=== PATIENT | female | born 1975 | race Caucasian/White ===

== ENCOUNTER 2016-06-14 12:21 | Outpatient (CLI) | payer OTHER | END 2016-06-14 12:22 | disposition home or self-care (01) | DX: G35 Multiple sclerosis (principal); Z51.81 Encounter for therapeutic drug level monitoring ==

== ENCOUNTER 2016-08-16 16:14 | Outpatient (CLI) | payer OTHER ==
[2016-08-16] MEDS ORDERED: GADOBUTROL 10 MMOL/10 ML VIAL IVP ONE (17:26)
== END 2016-08-16 16:15 | disposition home or self-care (01) ==
DX: M50.31 Other cervical disc degeneration, high cervical region (principal); M50.21 Other cervical disc displacement, high cervical region; M47.892 Other spondylosis, cervical region
CPT/HCPCS: 70553; 72156; A9585

== ENCOUNTER 2016-08-23 10:41 | Emergency (ER) | payer OTHER ==
[2016-08-23] MEDS ORDERED: HYDROmorphone 1 MG/ML SYRINGE IVP STA ×3 (13:48→16:51)
[2016-08-23] MEDS ORDERED: LORazepam 2 MG/ML SYRINGE IVP STA ×2 (13:48→15:18)
[2016-08-23] MEDS ORDERED: HYDROmorphone 1 MG/ML SYRINGE ONE ×3 (14:41→17:00)
[2016-08-23] MEDS ORDERED: LORazepam 2 MG/ML SYRINGE ONE ×2 (14:41→15:25)
[2016-08-23] MEDS ORDERED: ONDANSETRON 4 MG/2 ML VIAL IVP STA (15:18)
[2016-08-23] MEDS ORDERED: ONDANSETRON 4 MG/2 ML VIAL ONE (15:25)
[2016-08-23] MEDS ORDERED: GADOBUTROL 10 MMOL/10 ML VIAL IVP ONE (16:13)
== END 2016-08-23 19:45 | disposition home or self-care (01) ==
DX: G35 Multiple sclerosis (principal); M54.5 Low back pain; Z98.1 Arthrodesis status; Z87.442 Personal history of urinary calculi
CPT/HCPCS: 36415; 72158; 80048; 84703; 85025; 96374; 96375; 96376; 99284; 99285; A9585; J1170; J2060

== ENCOUNTER 2016-08-26 19:10 | Emergency (ER) | payer OTHER ==
[2016-08-26] MEDS ORDERED: ALBUTEROL NEB 2.5 MG/3 ML INH STA (19:26)
[2016-08-26] MEDS ORDERED: guaiFENesin/CODEINE 5 ML UDC PO STA (19:27)
[2016-08-26] MEDS ORDERED: HYDROmorphone 1 MG/ML SYRINGE IVP STA ×3 (19:29→21:37)
[2016-08-26] MEDS ORDERED: ONDANSETRON 4 MG/2 ML VIAL IVP STA (19:29)
[2016-08-26] MEDS ORDERED: SODIUM CHLORIDE 0.9% 1,000 ML IV ONE (19:29)
--- NOTE | 2016-08-26 19:33 | ED Physician Documentation ---
PD HPI URI - Stated complaint Stated Complaint: COUGH/WEAK - Chief complaint Chief Complaint: Resp - History obtained from History obtained from: Patient, Family () - History of Present Illness Timing - onset: Other (40-year-old woman with MS was here a few days ago with increasing symptoms of MS, leg pain especially. Today developed sore throat this morning and rapidly developed a productive cough with a large amount of brown sputum, and she's having a lot of pain with coughing and some shortness of breath but no obvious fevers. She is not on any immune modulating drugs at this juncture. Her older daughter was sick with URI symptoms mid last week.) Review of Systems Constitutional: denies: Fever, Chills Nose: denies: Rhinorrhea / runny nose Throat: reports: Sore throat Cardiac: reports: Chest pain / pressure Respiratory: reports: Dyspnea, Cough. denies: Hemoptysis GI: denies: Abdominal Pain, Constipation PD PAST MEDICAL HISTORY - Past Medical History Cardiovascular: None Respiratory: None Neuro: Multiple sclerosis Endocrine/Autoimmune: None GI: None : Kidney stones HEENT: None Psych: Depression Musculoskeletal: Other Derm: Herpes zoster, Psoriasis - Past Surgical History Past Surgical History: Yes General: Cholecystectomy, EGD Ortho: Other /[employer]: Endometrial ablation Neuro: Other - Present Medications Home Medications: Ambulatory Orders Medication Instructions Recorded Confirmed Zolpidem Tartrate [Ambien] 10 mg PO QPM 10/17/14 08/23/16 Oxycodone HCl 5 mg PO QID PRN 12/01/15 08/23/16 Verapamil HCl [Verapamil ER] 120 mg PO DAILY 12/06/15 08/23/16 Nortriptyline HCl 75 mg PO QPM 04/09/16 08/23/16 Ondansetron Odt [Zofran Odt] 4 mg PO TID PRN 04/09/16 08/23/16 Venlafaxine HCl [Effexor Xr] 150 mg PO DAILY 04/09/16 08/23/16 diazePAM [Valium] 5 mg PO QID PRN 04/09/16 08/23/16 Rituxon 2 g IV 08/26/16 - Allergies Allergies/Adverse Reactions: Allergies Allergy/AdvReac Type Severity Reaction Status Date / Time prochlorperazine maleate * Allergy Intermediate unknown Verified 08/26/16 20:04 [From Compazine] - Social History Does the pt smoke?: No Smoking Status: Never smoker Does the pt drink ETOH?: No Does the pt have substance abuse?: No - Immunizations Immunizations are current?: Yes - POLST Patient has POLST: No PD ED PE NORMAL - Vitals Vital signs reviewed: Yes - General General: Alert and oriented X 3, Other (Appears miserable and in pain with frequent coughing) - HEENT HEENT: Ears normal, Pharynx benign - Neck Neck: Supple, no meningeal sign, No bony TTP - Cardiac Cardiac: RRR, No murmur - Respiratory Respiratory: No respiratory distress, Other (Focal wheezes and rhonchi in the right upper lobe) - Abdomen Abdomen: Soft, Non tender - Derm Derm: No rash - Neuro Neuro: Alert and oriented X 3, Normal speech Results - Vitals Vitals: Vital Signs - 24 hr 08/26/16 08/26/16 08/26/16 19:13 20:30 20:31 Temperature 36.9 C Heart Rate 99 Respiratory 22 Rate Blood Pressure 123/86 H O2 Saturation 96 90 L 98 08/26/16 08/26/16 08/26/16 20:58 21:51 22:09 Temperature Heart Rate 95 93 Respiratory 18 14 14 Rate Blood Pressure 138/79 H 125/79 O2 Saturation 97 96 Oxygen O2 Source Nasal cannula - Labs Labs: Laboratory Tests 08/26/16 08/26/16 08/26/16 20:30 20:30 21:11 WBC 5.5 RBC 4.60 Hgb 13.3 Hct 40.5 MCV 88.0 MCH 28.8 MCHC 32.7 RDW 13.4 Plt Count 229 MPV 7.5 L Neut # 3.5 Lymph # 1.0 L [place] # 0.7 Eos # 0.2 Baso # 0.0 Absolute Nucleated RBC 0.01 Nucleated RBCs 0.1 Sodium 136 Potassium 4.0 Chloride 100 L Carbon Dioxide 29 Anion Gap 7.0 BUN 16 Creatinine 0.7 Estimated GFR (MDRD) 94 Glucose 109 H Calcium 8.9 Total Bilirubin 0.3 AST 40 ALT 52 Alkaline Phosphatase 104 Total Protein 7.0 Albumin 3.9 Globulin 3.1 Albumin/Globulin Ratio 1.3 Lipase 22 Urine Color YELLOW Urine Clarity HAZY Urine pH 6.0 Ur Specific [place] 1.020 Urine Protein NEGATIVE Urine Glucose (UA) NEGATIVE Urine Ketones NEGATIVE Urine Occult Blood SMALL H Urine Nitrite NEGATIVE Urine Bilirubin NEGATIVE Urine Urobilinogen 0.2 (NORMAL) Ur Leukocyte Esterase NEGATIVE Urine RBC 0-5 Urine WBC 0-3 Ur Squamous Epith Cells FEW Squamous Urine Bacteria Few Ur Microscopic Review INDICATED Urine Culture Comments NOT INDICATED Urine HCG, Qual NEGATIVE PD MEDICAL DECISION MAKING - ED course ED course: 40 year-old woman with complicated MS presents with a bad cough tonight. Also a lot of pain in her legs, see previous visit. Suspect this is some sort of MS flare. Chest x-ray was clear in her breathing was better after a neb. She did require a lot of pain medication and briefly became hypoxic at that resolved on its own. We discussed potentially transfer down to [place], for specialty neurologic care but the patient declined. Departure - Departure Disposition: 01 Home, Self Care Clinical Impression: Multiple sclerosis, Muscle weakness, Dehydration, Bronchitis Condition: Good Record reviewed to determine appropriate education?: Yes Instructions: ED Bronchitis Asthmatic Comments: Call your doctor to arrange a follow up appointment. Make the next available appointment. In the interim return anytime if worse or if new symptoms develop. Forms: Activity restrictions
[2016-08-26] MEDS ORDERED: ONDANSETRON 4 MG/2 ML VIAL ONE (19:52)
[2016-08-26] MEDS ORDERED: HYDROmorphone 1 MG/ML SYRINGE ONE ×3 (19:52→21:42)
[2016-08-26] MEDS ORDERED: guaiFENesin/CODEINE 5 ML UDC ONE (19:52)
--- NOTE | 2016-08-26 20:35 | XRAY Preliminary Report ---
Exam: XR Chest 2 View PA/LAT IMPRESSION: No evidence of acute cardiopulmonary disease. [facility] SITE ID: [id number]
--- NOTE | 2016-08-26 20:37 | XRAY Report ---
EXAM: CHEST RADIOGRAPHY EXAM DATE: 08/26/2016 08:25 PM. CLINICAL HISTORY: Cough, dyspnea, abn sounds RUL. COMPARISON: None. TECHNIQUE: 2 views. FINDINGS: Lungs/Pleura: No focal opacities evident. No pleural effusion. No pneumothorax. Normal volumes. Mediastinum: Heart and mediastinal contours are unremarkable. Other: Right subclavian port is stable. IMPRESSION: No evidence of acute cardiopulmonary disease. [facility] Referring Provider Line: [phone] SITE ID: [id number]
[2016-08-26 20:38] LABS: BASOPHILS % (AUTO) 0.8 %; EOSINOPHILS # (AUTO) 0.2 10^3/uL (0.0-0.7); EOSINOPHILS % (AUTO) 4.5 %; HCT - HEMATOCRIT 40.5 % (37.0-47.0); HGB - HEMOGLOBIN 13.3 g/dL (12.0-16.0); LYMPHOCYTES % (AUTO) 18.5 %; MEAN CORPUSCULAR HEMOGLOBIN 28.8 pg (27.0-31.0); MEAN CORPUSCULAR HGB CONC 32.7 g/dL (32.0-36.0); MEAN PLATELET VOLUME 7.5 fL (7.9-10.8); MONOCYTES # (AUTO) 0.7 10^3/uL (0.0-1.0); MONOCYTES % (AUTO) 12.1 %; NEUTROPHILS # (AUTO) 3.5 10^3/uL (1.5-6.6); NEUTROPHILS % (AUTO) 64.1 %; NUCLEATED RED BLOOD CELLS AUTO 0.1 /100WBC; RED CELL DISTRIBUTION WIDTH 13.4 % (12.0-15.0); UNCORRECTED WHITE BLOOD COUNT 5.5 x10^3/uL; WHITE BLOOD COUNT 5.5 x10^3/uL (4.8-10.8)
[2016-08-26] MEDS ORDERED: ALBUTEROL NEB 2.5 MG/3 ML INH ONE (20:40)
[2016-08-26 20:49] LABS: ALBUMIN/GLOBULIN RATIO 1.3 (1.0-2.2); BILIRUBIN,TOTAL 0.3 mg/dL (0.2-1.0); CALCIUM 8.9 mg/dL (8.5-10.3); CREATININE 0.7 mg/dL (0.4-1.0)
[2016-08-26] MEDS ORDERED: diazePAM INJ 5 MG/ML SYRINGE IVP STA (21:37)
[2016-08-26] MEDS ORDERED: diazePAM INJ 5 MG/ML SYRINGE ONE (21:42)
[2016-08-26 21:44] LABS: BILIRUBIN,URINE NEGATIVE (NEGATIVE)
[2016-08-26 21:46] LABS: HCG UR QUAL NEGATIVE; UA w/ MICROSCOPIC CHARGE YES
[2016-08-26 21:58] LABS: UR CULTURE IF IND NOT INDICATED; WBC,URINE 0-3 /HPF (0-5)
[2016-08-26 23:15] VITALS: BP 142/83
== END 2016-08-26 23:17 | disposition home or self-care (01) ==
LOC: ED 19:10
DX: J40 Bronchitis, not specified as acute or chronic (principal); R09.02 Hypoxemia; E86.0 Dehydration; G35 Multiple sclerosis; M62.81 Muscle weakness (generalized)
CPT/HCPCS: 36415; 71020; 80053; 81001; 81025; 83690; 85025; 94640; 96374; 96375; 96376; 99284; A9270; J1170; J7613; 81003; 87086

== ENCOUNTER 2016-08-27 08:27 | Inpatient (IN) | payer OTHER ==
[2016-08-27] MEDS ORDERED: SODIUM CHLORIDE 0.9% 1,000 ML IV ONE (08:54)
[2016-08-27] MEDS ORDERED: HYDROmorphone 1 MG/ML SYRINGE IVP STA ×2 (08:55→09:53)
[2016-08-27] MEDS ORDERED: diazePAM INJ 5 MG/ML SYRINGE IVP STA (08:55)
[2016-08-27] MEDS ORDERED: ONDANSETRON 4 MG/2 ML VIAL IVP STA (08:55)
[2016-08-27] MEDS ORDERED: ALBUTEROL NEB 2.5 MG/3 ML INH STA ×2 (08:55→10:28)
[2016-08-27] MEDS ORDERED: ALBUTEROL NEB 2.5 MG/3 ML INH ONE ×3 (08:59→16:23)
[2016-08-27] MEDS ORDERED: HYDROmorphone 1 MG/ML SYRINGE ONE ×2 (09:13→09:53)
[2016-08-27] MEDS ORDERED: diazePAM INJ 5 MG/ML SYRINGE ONE (09:13)
[2016-08-27] MEDS ORDERED: ONDANSETRON 4 MG/2 ML VIAL ONE (09:14)
[2016-08-27] MEDS ORDERED: AZITHROMYCIN INJ 500 MG in SODIUM CHLORIDE 0.9% 250 ML IV STA (10:27)
[2016-08-27] MEDS ORDERED: cefTRIAXone 1 GM in SODIUM CHLORIDE 0.9% MINIBAG 100 ML IV STA (10:27)
[2016-08-27] MEDS ORDERED: oxyCODONE 5 MG TABLET PO PRN (10:28)
[2016-08-27] MEDS ORDERED: ONDANSETRON ODT 4 MG TABLET PO PRN (10:28)
[2016-08-27] MEDS ORDERED: diazePAM 5 MG TABLET PO PRN (10:28)
[2016-08-27] MEDS ORDERED: SODIUM CHLORIDE FLUSH 0.9% 10 ML SYRINGE IVP PRN (10:32)
[2016-08-27] MEDS ORDERED: cefTRIAXone 1 GM VIAL ONE (10:34)
[2016-08-27] MEDS ORDERED: KETOROLAC 60 MG/2 ML VIAL IVP STA (10:52)
[2016-08-27] MEDS ORDERED: ACETAMINOPHEN 1,000 MG/100 ML 100 ML IV STA (10:52)
[2016-08-27] MEDS ORDERED: KETOROLAC 30 MG/ML VIAL ONE (11:08)
[2016-08-27] MEDS ORDERED: AZITHROMYCIN INJ 500 MG in SODIUM CHLORIDE 0.9% 250 ML IV SCH (13:00)
[2016-08-27] MEDS: MORPHINE 2 MG/ML SYRINGE IVP PRN ×5 (14:08→21:38)
[2016-08-27] MEDS: SODIUM CHLORIDE FLUSH 0.9% 10 ML SYRINGE IVP SCH ×2 (14:12→21:31)
[2016-08-27] MEDS: D5.45NS W/20 MEQ KCL 1,000 ML IV SCH ×2 (14:57→21:32)
[2016-08-27] MEDS: ALBUTEROL NEB 2.5 MG/3 ML INH SCH ×2 (16:40→23:30)
[2016-08-27] MEDS: diazePAM 5 MG TABLET PO SCH ×2 (17:10→21:30)
[2016-08-27] MEDS: oxyCODONE 5 MG TABLET PO SCH ×2 (17:16→21:31)
[2016-08-27] MEDS: oxyCODONE 5 MG TABLET PO PRN (18:48)
[2016-08-27] MEDS: ZOLPIDEM 5 MG TABLET PO SCH (21:31)
[2016-08-27] MEDS: VERAPAMIL ER 120 MG TABLET PO SCH (21:31)
[2016-08-27] MEDS: NORTRIPTYLINE 25 MG CAPSULE PO SCH (21:31)
[2016-08-27] MEDS ORDERED: MAGNESIUM SULFATE 2 GRAM 50 ML IV ONE (21:45)
[2016-08-27] MEDS ORDERED: diazePAM INJ 5 MG/ML SYRINGE IVP SCH (23:46)
[2016-08-27] MEDS ORDERED: IPRATROPIUM/ALBUTEROL 3 ML NEB INH STA ×2 (23:46→23:47)
[2016-08-27] MEDS ORDERED: IPRATROPIUM/ALBUTEROL 3 ML NEB INH PRN (23:47)
[2016-08-28] MEDS: MORPHINE 2 MG/ML SYRINGE IVP PRN (00:05)
[2016-08-28] MEDS: guaiFENesin/CODEINE 5 ML UDC PO PRN ×2 (00:06→23:59)
[2016-08-28] MEDS: oxyCODONE 5 MG TABLET PO PRN (00:52)
[2016-08-28] MEDS ORDERED: ONDANSETRON ODT 4 MG TABLET PO PRN (02:00)
[2016-08-28] MEDS: HYDROmorphone 1 MG/ML SYRINGE IVP PRN ×7 (02:05→23:59)
[2016-08-28] MEDS: predniSONE 20 MG TABLET PO SCH ×2 (04:31→08:21)
[2016-08-28] MEDS: PIPERACILLIN/TAZOBACTAM 3.375 GM in SODIUM CHLORIDE 0.9% MINIBAG 100 ML IV SCH ×4 (04:31→22:14)
[2016-08-28] MEDS: SODIUM CHLORIDE FLUSH 0.9% 10 ML SYRINGE IVP SCH ×3 (05:27→18:24)
[2016-08-28] MEDS: diazePAM 5 MG TABLET PO SCH ×4 (08:21→22:16)
[2016-08-28] MEDS: VENLAFAXINE ER 75 MG CAPSULE PO SCH (08:21)
[2016-08-28] MEDS: oxyCODONE 5 MG TABLET PO SCH ×4 (08:22→22:15)
[2016-08-28] MEDS: D5.45NS W/20 MEQ KCL 1,000 ML IV SCH ×2 (08:55→20:30)
[2016-08-28] MEDS ORDERED: cefTRIAXone 1 GM in SODIUM CHLORIDE 0.9% MINIBAG 100 ML IV SCH (09:00)
[2016-08-28] MEDS: POLYETHYLENE GLYCOL 3350 17 GM PACKET PO SCH (09:00)
[2016-08-28] MEDS ORDERED: VERAPAMIL ER 120 MG TABLET PO SCH (09:00)
[2016-08-28] MEDS: IPRATROPIUM/ALBUTEROL 3 ML NEB INH SCH ×4 (09:30→20:27)
[2016-08-28] MEDS: ALBUTEROL NEB 2.5 MG/3 ML INH PRN ×2 (18:24→22:14)
[2016-08-28] MEDS: NORTRIPTYLINE 25 MG CAPSULE PO SCH (22:15)
[2016-08-28] MEDS: VERAPAMIL ER 120 MG TABLET PO SCH (22:15)
[2016-08-28] MEDS: ZOLPIDEM 5 MG TABLET PO SCH (22:15)
[2016-08-29] MEDS: PIPERACILLIN/TAZOBACTAM 3.375 GM in SODIUM CHLORIDE 0.9% MINIBAG 100 ML IV SCH ×2 (05:02→10:48)
[2016-08-29] MEDS: SODIUM CHLORIDE FLUSH 0.9% 10 ML SYRINGE IVP SCH ×2 (06:30→13:34)
[2016-08-29] MEDS: IPRATROPIUM/ALBUTEROL 3 ML NEB INH SCH (06:45)
[2016-08-29] MEDS: ALBUTEROL NEB 2.5 MG/3 ML INH PRN (09:50)
[2016-08-29] MEDS: VENLAFAXINE ER 75 MG CAPSULE PO SCH (10:49)
[2016-08-29] MEDS: predniSONE 20 MG TABLET PO SCH (10:49)
[2016-08-29] MEDS: POLYETHYLENE GLYCOL 3350 17 GM PACKET PO SCH (10:51)
[2016-08-29] MEDS: diazePAM 5 MG TABLET PO SCH ×2 (12:42→13:34)
[2016-08-29] MEDS: oxyCODONE 5 MG TABLET PO SCH ×2 (12:42→13:34)
[2016-08-29] MEDS ORDERED: IPRATROPIUM/ALBUTEROL 3 ML NEB INH SCH (13:00)
== END 2016-08-29 14:41 | disposition home or self-care (01) | DRG 202 ==
DX: J20.9 Acute bronchitis, unspecified (principal); Z68.42 Body mass index [BMI] 45.0-49.9, adult; J45.909 Unspecified asthma, uncomplicated; R09.02 Hypoxemia; G35 Multiple sclerosis; E83.42 Hypomagnesemia; E83.51 Hypocalcemia; K21.9 Gastro-esophageal reflux disease without esophagitis; F41.9 Anxiety disorder, unspecified; E66.01 Morbid (severe) obesity due to excess calories; Z87.442 Personal history of urinary calculi; Z86.79 Personal history of other diseases of the circulatory system; Z95.828 Presence of other vascular implants and grafts; Z79.891 Long term (current) use of opiate analgesic